=== PATIENT | female | born 1970 | race Caucasian/White ===

== ENCOUNTER 2017-08-17 16:11 | Emergency (ER) | END 2017-08-18 14:11 | disposition home or self-care (01) ==

== ENCOUNTER 2019-05-24 05:27 | Inpatient (IN) | payer OTHER ==
[2019-05-24] VITALS (55 sets, daily range): BP systolic 103–153; BP diastolic 55–81; PULSE 56–80; RESP 9–26; Ht 170.2 cm; Wt 81.5 kg
[~2019-05-24] VITALS: Ht 170.2 cm; Wt 81.5 kg
[~2019-05-24 05:27] MED LIST: ACET325T33 PO; ASC500 PO; CEPH500C ORAL; DOCU-216 PO; FERR325T5 PO; FLUC150T41 ORAL; LEVO25TA6 PO; LEVO75TA65 PO; METR70GE4 VAG
[2019-05-24] MEDS ORDERED: DESFLURANE 15 MIN ONE (07:30)
[2019-05-24] MEDS ORDERED: FENTAnyl 50 MCG/ML VIAL ONE (07:37)
[2019-05-24] MEDS ORDERED: BUPIVACAINE 0.25%/EPI (SDV) 10 ML INJ ONE (07:39)
[2019-05-24] MEDS ORDERED: LIDOCAINE 100 MG SYRINGE ONE (09:24)
[2019-05-24] MEDS ORDERED: PROPOFOL 20 ML ONE (09:24)
[2019-05-24] MEDS ORDERED: SUGAMMADEX SODIUM 200 MG/2 ML VIAL IV ONE (09:24)
[2019-05-24] MEDS ORDERED: CEFAZOLIN 1 GM INJ ONE (09:24)
[2019-05-24] MEDS ORDERED: ROCURONIUM 50 MG INJ ONE (09:24)
[2019-05-24] MEDS ORDERED: SUCCINYLCHOLINE CHLORIDE 100 MG/5 ML SYG IV ONE (09:24)
[2019-05-24] MEDS ORDERED: HYDROmorphONE 1 MG/5 ML IV SYRINGE IV PRN ×2 (10:30)
[2019-05-24] MEDS ORDERED: ALBUTEROL 0.083% (NEB) 2.5 MG/3 ML AMP HHN PRN (10:30)
[2019-05-24] MEDS ORDERED: ONDANSETRON 4 MG INJ IV PRN (10:30)
[2019-05-24] MEDS ORDERED: METOCLOPRAMIDE 10 MG INJ IV PRN (10:30)
[2019-05-24] MEDS ORDERED: FENTAnyl 50 MCG/ML VIAL IV PRN ×2 (10:30)
[2019-05-24] MEDS ORDERED: MEPERIDINE 25 MG INJ IV PRN (10:30)
[2019-05-24] MEDS ORDERED: DIPHENHYDRAMINE 50 MG INJ IV PRN (10:30)
[2019-05-24] MEDS ORDERED: DIPHENHYDRAMINE 50 MG CAP PO PRN (11:00)
[2019-05-24] MEDS ORDERED: ONDANSETRON INJ 6 MG in DEXTROSE 5% 50 ML IVPB PRN (11:00)
[2019-05-24] MEDS ORDERED: ZOLPIDEM 5 MG TAB PO PRN (11:00)
[2019-05-24] MEDS ORDERED: HYDROCODONE/APAP (5/325) TAB PO PRN (11:00)
[2019-05-24] MEDS: KETOROLAC 30 MG INJ IV SCH ×3 (17:00→23:19)
[2019-05-24] MEDS: LACTATED RINGER'S 1,000 ML IV SCH ×2 (17:02→17:44)
[2019-05-24] MEDS: CEFAZOLIN 1 GM/50 ML (PMX) 50 ML IVPB SCH ×2 (17:03→21:55)
[2019-05-24] MEDS: METOCLOPRAMIDE 10 MG TAB PO SCH ×3 (17:03→23:19)
[2019-05-24] MEDS ORDERED: ENOXAPARIN 30 MG/0.3 ML SYG SC SCH (21:00)
[2019-05-25 02:14] VITALS: BP 106/62; PULSE 69; RESP 20
[2019-05-25] MEDS: LACTATED RINGER'S 1,000 ML IV SCH (02:57)
[2019-05-25] MEDS: KETOROLAC 30 MG INJ IV SCH ×3 (05:09→17:43)
[2019-05-25] MEDS: CEFAZOLIN 1 GM/50 ML (PMX) 50 ML IVPB SCH (05:16)
[2019-05-25] MEDS: LEVOTHYROXINE 75 MCG TAB PO SCH (06:21)
[2019-05-25] MEDS: METOCLOPRAMIDE 10 MG TAB PO SCH ×3 (06:21→17:43)
[2019-05-25] MEDS ORDERED: LEVOTHYROXINE 75 MCG TAB PO SCH (07:00)
[2019-05-25 08:18] VITALS: BP 150/69; PULSE 71; RESP 17
[2019-05-25] MEDS: ENOXAPARIN 40 MG/0.4 ML SYG SC SCH (08:47)
[2019-05-25 11:44] VITALS: BP 142/66; PULSE 70
[2019-05-25 14:00] VITALS: BP_SYST 141; BP_SYST 160; BP_DIAS 74; BP_DIAS 78; PULSE 83; PULSE 87; RESP 16; RESP 17
[2019-05-25 14:30] VITALS: BP 139/80; PULSE 72
[2019-05-25 20:00] VITALS: BP 176/96; PULSE 104; RESP 19
[2019-05-25] MEDS: HYDROCODONE/APAP (5/325) TAB PO PRN (20:01)
[2019-05-25] MEDS ORDERED: ESTRADIOL VALERATE 20 MG/0.5 ML INJ IM ONE (22:00)
[2019-05-26 02:00] VITALS: BP 125/72; PULSE 105; RESP 18
[2019-05-26] MEDS: METOCLOPRAMIDE 10 MG TAB PO SCH ×3 (06:00→12:22)
[2019-05-26] MEDS: LEVOTHYROXINE 75 MCG TAB PO SCH (06:15)
[2019-05-26 08:40] VITALS: BP 132/78; PULSE 79; RESP 18
[2019-05-26] MEDS: HYDROCODONE/APAP (5/325) TAB PO PRN (08:43)
[2019-05-26] MEDS: ENOXAPARIN 40 MG/0.4 ML SYG SC SCH (08:44)
[2019-05-26] MEDS ORDERED: ESTRADIOL VALERATE 100 MG/5 ML INJ IM ONE (13:00)
[2019-05-26] MEDS ORDERED: ESTRADIOL VALERATE 20 MG/0.5 ML INJ IM ONE (13:00)
[2019-05-26] MEDS ORDERED: ESTRADIOL VALERATE 100 MG/5 ML INJ IM SCH (13:30)
== END 2019-05-26 13:45 | disposition home or self-care (01) | DRG 743 ==
LOC: REC 05:27 → UNDOADMIN 05:27 → 5EC 16:33 → REC 16:33 → UNDODISIN 05-26 13:45
PROVIDERS: ADMIT Obstetrics & Gynecology; ATTEND Obstetrics & Gynecology
PROC: 0UT97ZZ Resection of Uterus, Via Natural or Artificial Opening (ICD-10-PCS; principal; 2019-05-24 07:30)
DX: D25.0 Submucous leiomyoma of uterus (principal); N92.1 Excessive and frequent menstruation with irregular cycle; D64.9 Anemia, unspecified; N73.6 Female pelvic peritoneal adhesions (postinfective); E78.5 Hyperlipidemia, unspecified; E03.9 Hypothyroidism, unspecified
CPT/HCPCS: 80051; 82565; 82962; 84520; 84703; 85025; 86850; 86900; 86901; 86920; 87086; 88307; J1380; J0690; J1650; J1885; J2001; J2175; J2405; J3010; J7120